=== PATIENT | male | born 1960 | race Caucasian/White ===

== ENCOUNTER 2017-09-20 06:02 | Emergency (ER) | payer OTHER ==
[~2017-09-20] VITALS: Ht 165.1 cm; Wt 68.0 kg
[2017-09-20] MEDS ORDERED: ADVIL200 M3 PO (06:10)
[2017-09-20] MEDS ORDERED: BACTRIM DS TAB1 EAC1 PO (07:12)
[2017-09-20 08:00] VITALS: BP 173/88
== END 2017-09-20 08:00 | disposition home or self-care (01) ==
LOC: ER 06:02
DX: J06.9 Acute upper respiratory infection, unspecified (principal); L08.9 Local infection of the skin and subcutaneous tissue, unspecified; F17.210 Nicotine dependence, cigarettes, uncomplicated